=== PATIENT | female | born 1995 | race Two or more races ===

== ENCOUNTER 2017-09-20 20:42 | Emergency (ER) | payer SELFPAY ==
[2017-09-20 20:52] VITALS: BP 117/63
[2017-09-20] MEDS ORDERED: Ibuprofen TAB* 600 MG PO ONE (21:09)
--- NOTE | 2017-09-20 21:30 | UC ---
Mina Reynolds Nilda, scribed for Shamar Gómez MD on 09/20/17 at 2117 . Back Pain HPI - HPI Summary HPI Summary: This patient is a 22 year old F presenting [place] [facility] by friend with a chief complaint of severe right lower back pain that radiates down RLE for the past 4 days. The patient rates the pain 9/10 in severity. Symptoms aggravated by walking and sitting. Symptoms alleviated by lying down and ibuprofen. Patient reports that pain began as lower abd pain which resolved but later progressed into bilateral lower back pain. Now pain is only in right lower back. Patient denies dysuria, fever, chills, diarrhea, bloody stools, vaginal discharge, and issues with bladder/bowel control. - History of Current Complaint Chief Complaint: UCBackPain Stated Complaint: BACK PAIN Time Seen by Provider: 09/20/17 20:55 Hx Obtained From: Patient Hx Last Menstrual Period: END AUGUST 2017 Onset/Duration: Sudden Onset Timing: Constant Severity Currently: Severe Pain Intensity: 9 Pain Scale Used: 0-10 Numeric Back Pain: Is Discrete @ - Right lower back pain, Radiates To - RLE Character: Sharp Aggravating Factor(s): Walking, Other - sitting Alleviating Factor(s): OTC Meds - ibuprofen, Other - lying down Associated Signs And Symptoms: Positive: Other - pain began as lower abd pain which resolved and progressed into bilateral lower back pain. Now pain is only in right lower back. Patient denies dysuria, fever, chills, diarrhea, bloody stools, vaginal discharge, and issues with bladder/bowel control. - Allergies/Home Medications Allergies/Adverse Reactions: Allergies Allergy/AdvReac Type Severity Reaction Status Date / Time No Known Allergies Allergy Verified 09/20/17 20:52 Home Medications: Home Medications Aspirin TAB* [Aspirin 325 MG TAB*] 650 mg PO ONCE PRN 09/20/17 [History Confirmed 09/20/17] PMH/Surg Hx/FS Hx/Imm Hx Respiratory History: Asthma - Surgical History Surgical History: None - Family History Known Family History: Positive: Hypertension, Other - Polymyalgia rheumatica - Social History Alcohol Use: None Substance Use Type: None Smoking Status (MU): Never Smoked Tobacco Review of Systems Constitutional: Other - negative fever, chills Gastrointestinal: Abdominal Pain - lower, resolved, Other - negative diarrhea, bloody stools Genitourinary: Other - negative dysuria, vaginal discharge, issues with bowel and bladder control Musculoskeletal: Other: - right lower back pain that radiates down RLE All Other Systems Reviewed And Are Negative: Yes Physical Exam Triage Information Reviewed: Yes Vital Signs: Initial Vital Signs Temp 99.1 F 09/20/17 20:48 Pulse 87 09/20/17 20:48 Resp 16 09/20/17 20:48 BP 117/63 09/20/17 20:48 Pulse Ox 100 09/20/17 20:48 Vital Signs Reviewed: Yes - Additional Comments General: well-appearing, mild pain distress that becomes moderate with movement Skin: warm, color reflects adequate perfusion, dry Head: normal Eyes: EOMI, SYLVIE ENT: normal Neck: supple, nontender Respiratory: CTA, breath sounds present Cardiovascular: RRR Abdomen: soft, nontender Bowel: present Musculoskeletal: Tender to palpation in lower back to right of spine. Good patellar reflexes, no sensation deficits, strength 5/5 in all ROM for left and right leg. Pt c/o pain in back with right hip flexion, foot plantar flexion, and dorsal flexion. Neurological: normal, sensory/motor intact, A&O x3 Psychological: affect/mood appropriate Back Pain Course/Dx - Course Course Of Treatment: Medications reviewed. NO ABDOMINAL PAIN/TENDERNESS HERE NOW IN CLINIC. TENDER TO RIGHT OF LUMBAR SPINE AND IN THE RT SCIATIC DISTRIBUTION. NO NEURO DEFICIT. F/U PMD; RETURN IF WORSE. - Differential Dx/Diagnosis Provider Diagnoses: LOW BACK PAIN. RIGHT SCIATICA. Discharge - Discharge Plan Condition: Stable Disposition: HOME Patient Education Materials: Sciatica (ED), Acute Low Back Pain (ED) Referrals: Henna Ramos [Primary Care Provider] - Additional Instructions: FOLLOW UP WITH YOUR DOCTOR. GET RECHECKED FOR ANY WORSENING OF YOUR CONDITION; WEAKNESS, NUMBNESS, DIFFICULTY CONTROLLING BOWEL OR BLADDER OR QUESTIONS OR CONCERNS. The documentation as recorded by the Mina bradley Nilda accurately reflects the service I personally performed and the decisions made by me, Shamar Gómez MD.
== END 2017-09-20 21:32 | disposition home or self-care (01) ==
LOC: UCEAST 20:42
DX: M54.41 Lumbago with sciatica, right side (principal); J45.909 Unspecified asthma, uncomplicated; Z79.82 Long term (current) use of aspirin
CPT/HCPCS: 81003; 99202; A9270-GY; G0463

== ENCOUNTER 2019-04-14 10:02 | Emergency (ER) | payer OTHER ==
[2019-04-14 10:13] VITALS: BP 125/67
--- NOTE | 2019-04-14 10:37 | UC ---
Complaint Female HPI - HPI Summary HPI Summary: 24-year-old female presents with onset of dysuria, frequency, and urgency this morning. Patient is currently having her menses. Denies fever, chills, abdominal pain, back or flank pain, nausea, vomiting, dyspareunia, or vaginal discharge. - History Of Current Complaint Chief Complaint: UCGU Stated Complaint: URINARY ISSUE Time Seen by Provider: 04/14/19 10:23 Hx Obtained From: Patient Hx Last Menstrual Period: 04/11/19 Pain Intensity: 6 - Allergies/Home Medications Allergies/Adverse Reactions: Allergies Allergy/AdvReac Type Severity Reaction Status Date / Time No Known Allergies Allergy Verified 04/14/19 10:13 PMH/Surg Hx/FS Hx/Imm Hx Previously Healthy: Yes Respiratory History: Asthma - Surgical History Surgical History: None - Family History Known Family History: Positive: Hypertension, Other - Polymyalgia rheumatica - Social History Occupation: Student Lives: With Family Alcohol Use: None Substance Use Type: None Smoking Status (MU): Never Smoked Tobacco Review of Systems All Other Systems Reviewed And Are Negative: Yes Constitutional: Negative: Fever, Chills Respiratory: Positive: Negative Cardiovascular: Positive: Negative Gastrointestinal: Positive: Negative Genitourinary: Positive: Dysuria, Frequency, Urgency. Negative: Vaginal/Penile Discharge Musculoskeletal: Positive: Negative Neurological: Positive: Negative Is Patient Immunocompromised?: No Physical Exam - Summary Physical Exam Summary: GENERAL APPEARANCE: Well developed, well nourished, alert and cooperative, and appears to be in no acute distress. CARDIAC: Normal S1 and S2. No S3, S4 or murmurs. Rhythm is regular. There is no peripheral edema, cyanosis or pallor. Extremities are warm and well perfused. Capillary refill is less than 2 seconds. Peripheral pulses intact. LUNGS: Clear to auscultation without rales, rhonchi, wheezing or diminished breath sounds. ABDOMEN: Positive bowel sounds. Soft, nondistended, nontender. No guarding or rebound. No masses or hepatosplenomegally. No CVA tenderness. MUSKULOSKELETAL: ROM intact to all extremities. No joint erythema or tenderness. Normal muscular development. Normal gait. SKIN: Skin normal color, texture and turgor with no lesions or eruptions. Triage Information Reviewed: Yes Vital Signs: Initial Vital Signs Temp 98 F 04/14/19 10:10 Pulse 71 04/14/19 10:10 Resp 18 04/14/19 10:10 BP 125/67 04/14/19 10:10 Pulse Ox 100 04/14/19 10:10 Vital Signs Reviewed: Yes Complaint Female Dx - Course Course Of Treatment: 24-year-old female presents with onset of dysuria, frequency, and urgency this morning. Patient is currently having her menses. Denies fever, chills, abdominal pain, back or flank pain, nausea, vomiting, dyspareunia, or vaginal discharge. Afebrile. Vital signs stable. Patient's exam was overall unremarkable. [id number] urinalysis showed 2+ leukocyte esterase and 3+ blood. Urine was negative. Urine culture is pending. Based on the patient's symptoms and UA results will treat empirically for a urinary tract infection with Bactrim DS 1 tablet twice a day 5 days and Pyridium 100 mg 3 times a day 2 days pending urine culture results. She is to follow-up with her primary care provider in 3-5 days if symptoms persist. It is and warning symptoms are reviewed with the patient. Verbalized understanding and agrees with plan of care. - Differential Dx/Diagnosis Differential Diagnosis/HQI/PQRI: Ovarian Cyst, Pelvic Inflammatory Disease, Renal Colic, Sexually Transmitted Disease, Urinary Tract Infection Provider Diagnosis: UTI (urinary tract infection) Discharge - Sign-Out/Discharge Documenting (check all that apply): Patient Departure All imaging exams completed and their final reports reviewed: No Studies - Discharge Plan Condition: Stable Disposition: HOME Prescriptions: Phenazopyridine TAB* [Pyridium 100 mg TAB*] 100 mg PO TID #6 tab Sulfamethox/Trimethoprim DS* [Bactrim DS 800/160 TAB*] 1 tab PO BID #10 tab Patient Education Materials: Urinary Tract Infection in Women (ED) Referrals: Henna Pittman PA [Primary Care Provider] - 3 Days Additional Instructions: Your urine test in the clinic today is suggestive of a urinary tract infection. We will start you on an antibiotic to treat for the infection. We will also send a urine culture today to see what bacteria grow out and make sure the antibiotic you were prescribed is appropriate to treat the infection. It will take 48-72 hours to get these results. We will contact you if there is any change in your treatment plan. Start Bactrim DS 1 tab twice a day for 5 days. Take Pyridium 1 tablet every 8 hours for next 2 days to help with the discomfort. This medication will turn your urine an orange color. Drink plenty of fluids. To help prevent urinary tract infections: 1) Be sure to wipe from front to back. 2) Urinate immediately after any sexual intercourse. 3) Avoid taking bubble baths. Follow up with your primary care provider in 3-5 days if symptoms persist. Seek immediate medical attention in the emergency room if you develop fever greater than 100.5 F, have severe abdominal pain, persistent vomiting, or any worsening of symptoms. - Billing Disposition and Condition Condition: STABLE Disposition: Home
--- NOTE | 2019-04-15 15:06 | UC ---
- Progress Note Progress Note: please notify patient ...NO UTI stop antibiotic recheck if still symtpomatic Course/Dx - Diagnoses Provider Diagnoses: UTI (urinary tract infection) Discharge - Sign-Out/Discharge Documenting (check all that apply): Post-Discharge Follow Up All imaging exams completed and their final reports reviewed: No Studies - Discharge Plan Condition: Stable Disposition: HOME Prescriptions: Phenazopyridine TAB* [Pyridium 100 mg TAB*] 100 mg PO TID #6 tab Sulfamethox/Trimethoprim DS* [Bactrim DS 800/160 TAB*] 1 tab PO BID #10 tab Patient Education Materials: Urinary Tract Infection in Women (ED) Referrals: Henna Pittman PA [Primary Care Provider] - 3 Days Additional Instructions: Your urine test in the clinic today is suggestive of a urinary tract infection. We will start you on an antibiotic to treat for the infection. We will also send a urine culture today to see what bacteria grow out and make sure the antibiotic you were prescribed is appropriate to treat the infection. It will take 48-72 hours to get these results. We will contact you if there is any change in your treatment plan. Start Bactrim DS 1 tab twice a day for 5 days. Take Pyridium 1 tablet every 8 hours for next 2 days to help with the discomfort. This medication will turn your urine an orange color. Drink plenty of fluids. To help prevent urinary tract infections: 1) Be sure to wipe from front to back. 2) Urinate immediately after any sexual intercourse. 3) Avoid taking bubble baths. Follow up with your primary care provider in 3-5 days if symptoms persist. Seek immediate medical attention in the emergency room if you develop fever greater than 100.5 F, have severe abdominal pain, persistent vomiting, or any worsening of symptoms. - Billing Disposition and Condition Condition: STABLE Disposition: Home
== END 2019-04-14 10:45 | disposition home or self-care (01) ==
LOC: UCEAST 10:02
DX: N39.0 Urinary tract infection, site not specified (principal); J45.909 Unspecified asthma, uncomplicated
CPT/HCPCS: 81002; 81025; 87086; 99212; G0463

== ENCOUNTER 2019-11-15 10:01 | Emergency (ER) | payer OTHER ==
[2019-11-15 10:14] VITALS: BP 115/64
--- NOTE | 2019-11-15 12:12 | UC ---
Lower Extremity/Ankle HPI - History of Current Complaint Chief Complaint: UCLowerExtremity Stated Complaint: KNEE PAIN Time Seen by Provider: 11/15/19 11:01 Hx Last Menstrual Period: 10/28 Pain Intensity: 9 - Allergies/Home Medications Allergies/Adverse Reactions: Allergies Allergy/AdvReac Type Severity Reaction Status Date / Time No Known Allergies Allergy Verified 11/15/19 10:14 Home Medications: Home Medications Epinephrine [Epipen] 0.3 mg IM ONCE #1 kit 11/12/12 [Clinic Confirmed 11/15/19] Albuterol HFA INHALER* [Proair Hfa Inhaler*] 2 puff IN Q4H PRN #1 inh 07/17/13 [ Clinic Confirmed 11/15/19] Naproxen [Naproxen 250 mg tab] 250 mg PO BID PRN #30 tablet 11/15/19 [Rx] PMH/Surg Hx/FS Hx/Imm Hx - Surgical History Surgical History: None - Family History Known Family History: Positive: Hypertension, Other - Polymyalgia rheumatica - Social History Alcohol Use: None Substance Use Type: None Smoking Status (MU): Never Smoked Tobacco Physical Exam Vital Signs: Initial Vital Signs Temp 98 F 11/15/19 10:11 Pulse 63 11/15/19 10:11 Resp 20 11/15/19 10:11 BP 115/64 11/15/19 10:11 Pulse Ox 100 11/15/19 10:11 Lower Extremity Course/Dx - Course Course Of Treatment: Possible Meniscal Tear - Ice, rest knee as much as possible - Follow up with orthopedics within 1-2 weeks for evaluation - Go to ER with increased pain, warm, swollen joint, inability to move. Academic Adviser: Earl Knapp C, ([id number]) Messenger Floorperson: LYNETTE ( LYNETTE) Report Date: 11/15/2019 12:00:00 Report Status: Final ====== Start of Report Content Patient Name: LER,PAWLERPAW Medical Record#: [id number] Ordering Physician: Ashley WOODARD Acct.#: [id number] : 09/1994 Age: 24 Sex: F Location: [facility] Exam Date: 11/15/19 1124 ADM Status: REG ER Order Information: KNEE LEFT 4+ VWS Accession Number: [id number] CPT: 79960 Indication: Several months LEFT knee pain. Weak feeling at the patella. COMPARISON: No relevant prior exams available on the [facility] PACS. Technique: LEFT knee: AP, tunnel, lateral, sunrise views obtained. Report: #. Normal articular alignment. #. Negative for fracture or osteochondral lesion. # . Negative for joint effusion. #. Preserved joint spaces without appreciable arthropathic change. #. Unremarkable soft tissue contours. <Electronically signed by Earl Knapp MD in OV> 11/15/19 1157 Dictated By: Earl Knapp MD Dictated Date/ Time: 11/15/19 1155 Transcribed Date/Time: 11/15/19 1155 Copy to: CC:Kyara Pedraza MD ; Henna BARROW; Ashlye WOODARD Imaging - [facility] Imaging - [facility] Urgent [facility] [address] [address] ph ([phone]) ph ([phone]) ph ([phone]) End of Report Content - Differential Dx/Diagnosis Differential Diagnosis/HQI/PQRI: Bursitis, Sprain, Strain, Tendonitis Provider Diagnosis: Acute meniscal tear of knee Discharge ED - Sign-Out/Discharge Documenting (check all that apply): Patient Departure All imaging exams completed and their final reports reviewed: No Studies - Discharge Plan Condition: Stable Disposition: HOME Prescriptions: Naproxen [Naproxen 250 mg tab] 250 mg PO BID PRN #30 tablet PRN Reason: Pain - Mild Patient Education Materials: Knee Pain (ED) Forms: *Work Release Referrals: Babak Pride MD [Medical Doctor] - Henna Pittman PA [Primary Care Provider] - Additional Instructions: Possible Meniscal Tear - Ice, rest knee as much as possible - Follow up with orthopedics within 1-2 weeks for evaluation - Go to ER with increased pain, warm, swollen joint, inability to move. Academic Adviser: Earl Knapp C ([id number]) Messenger Floorperson: LYNETTE ( LYNETTE) Report Date: 11/15/2019 12:00:00 Report Status: Final ====== Start of Report Content Patient Name: MILTON KIM Medical Record#: [id number] Ordering Physician: Ashley WOODARD Acct.#: [id number] : 09/1994 Age: 24 Sex: F Location: [facility] Exam Date: 11/15/19 1124 ADM Status: REG ER Order Information: KNEE LEFT 4+ VWS Accession Number: [id number] CPT: 47740 Indication: Several months LEFT knee pain. Weak feeling at the patella. COMPARISON: No relevant prior exams available on the [facility] PACS. Technique: LEFT knee: AP, tunnel, lateral, sunrise views obtained. Report: #. Normal articular alignment. #. Negative for fracture or osteochondral lesion. # . Negative for joint effusion. #. Preserved joint spaces without appreciable arthropathic change. #. Unremarkable soft tissue contours. <Electronically signed by Earl Knapp MD in OV> 11/15/191156 Dictated By: Earl Knapp MD Dictated Date/ Time: 11/15/191154 Transcribed Date/Time: 11/15/191154 Copy to: CC:Kyara Pedraza MD ; Henna BARROWC; Ashley Zepeda [place] Imaging - [facility] [place] [facility] - [place] [facility]gent [facility] Imaging - [facility] [address] [address] ph ([phone]) ph ([phone]) ph ([phone]) End of Report Content - Billing Disposition and Condition Condition: STABLE Disposition: Home
== END 2019-11-15 12:16 | disposition home or self-care (01) ==
LOC: UCEAST 10:01
DX: S83.207A Unspecified tear of unspecified meniscus, current injury, left knee, initial encounter (principal); X58.XXXA Exposure to other specified factors, initial encounter; Y92.9 Unspecified place or not applicable
CPT/HCPCS: 99212; G0463

== ENCOUNTER 2024-02-08 18:03 | Inpatient (IN) ==
[2024-02-08] MEDS ORDERED: Nalbuphine 10 MG/ML 1 ML VIAL IV PRN (20:16)
[2024-02-08 20:34] LABS: Urine Benzodiazepine Screen None Detected (None Detect); Urine Cannabinoids Screen None Detected (None Detect); Urine Opiates Screen None Detected (None Detect)
[2024-02-08] MEDS: Dinoprostone 10 MG VAG.SUPP VAGINAL ONE (21:17)
[2024-02-08 21:55] LABS: ABS Basophils 0.1 10^3/uL (0.0-0.1); ABS Eosinophils 0.1 10^3/uL (0.0-0.5); ABS Lymphocytes 2.2 10^3/uL (1.0-4.8); ABS Monocytes 0.8 10^3/uL (0.0-0.9); ABS Neutrophils 6.3 10^3/uL (1.5-7.6); Eosinophil % 0.8 %; Hematocrit 42.7 % (35-45); Hemoglobin 14.4 g/dL (11.5-14.3); Lymphocyte % 23.4 %; Mean Corpuscular Hemoglobin 30.4 pg (27-33); Mean Corpuscular Hgb Conc 33.8 g/dL (31-36); Mean Corpuscular Volume 90.1 fL (80-97); Mean Platelet Volume 11.9 fL (7.5-11.2); Platelet Count 125 10^3/uL (150-450); Red Blood Count 4.74 10^6/uL (3.63-4.92); Red Cell Distribution Width 14.8 % (12-17); White Blood Count 9.4 10^3/uL (3.8-11.8)
[2024-02-08] MEDS: Lactated Ringers 1000 ml BAG 1,000 ML IV ONE (22:54)
[2024-02-08 22:55] LABS: Hepatitis B Surface Antigen Nonreactive (Nonreactive)
[2024-02-08] MEDS: NYSTATIN TOPICAL SCH (23:55)
[2024-02-08] MEDS: TRIAMCINOLON TOPICAL SCH (23:55)
[2024-02-09] MEDS: Lactated Ringers 1000 ml BAG 1,000 ML IV SCH (01:03)
[2024-02-09] MEDS: Terbutaline INJ 1 MG/ML 1 ml VIAL SUBCUT ONE (01:22)
[2024-02-09] MEDS: Prochlorperazine 5 mg/ml 2 ml VIAL (10 mg) IV PRN (02:21)
[2024-02-09] MEDS: Lidocaine 1% VIAL 10 MG/ML 30 ML VIAL INJ PRN (07:48)
[2024-02-09] MEDS: Oxytocin in LR 20,000 MILLI.UNIT/1,000 ML BAG IV ONE (07:49)
[2024-02-09] MEDS ORDERED: Dibucaine 1% OINT 28.35 GM TUBE PR PRN (08:04)
[2024-02-09] MEDS ORDERED: Glycerin ADULT 2.4 gm SUPP PR PRN (08:04)
[2024-02-09] MEDS ORDERED: Lactated Ringers 1000 ml BAG 1,000 ML IV SCH (09:00)
[2024-02-09] MEDS: Witch Hazel PAD JAR TOPICAL PRN (09:33)
[2024-02-10] MEDS: Triamcinolone 0.025% OINT 15 GM TUBE TOPICAL SCH (00:46)
[2024-02-10 08:22] LABS: Hemoglobin 11.9 g/dL (11.5-14.3); Mean Corpuscular Hemoglobin 30.2 pg (27-33); Mean Corpuscular Hgb Conc 33.2 g/dL (31-36); Red Blood Count 3.96 10^6/uL (3.63-4.92); Red Cell Distribution Width 14.9 % (12-17); White Blood Count 11.5 10^3/uL (3.8-11.8)
[2024-02-10 09:20] LABS: ABS Eosinophils 0.1 10^3/uL (0.0-0.5); ABS Lymphocytes 2.1 10^3/uL (1.0-4.8); ABS Monocytes 0.7 10^3/uL (0.0-0.9); ABS Neutrophils 8.5 10^3/uL (1.5-7.6); Eosinophil % 0.8 %; Lymphocyte % 18.6 %; Mean Platelet Volume 11.9 fL (7.5-11.2); Platelet Count 92 10^3/uL (150-450)
[2024-02-11] MEDS: Oxytocin in LR 20,000 MILLI.UNIT/1,000 ML BAG IV SCH (07:22)
[2024-02-11] MEDS: Lidocaine 2% JELLY 6 ML Topical TOPICAL ONE (07:22)
[2024-02-11] MEDS: Buffered Lidocaine 1% SYRIN 1 ml INTRADERM ONE (07:22)
[2024-02-11] MEDS: Terbutaline INJ 1 MG/ML 1 ml VIAL ONE (07:26)
[2024-02-11 08:03] VITALS: BP 115/65
== END 2024-02-11 12:20 | disposition home or self-care (01) | DRG 560 ==
LOC: MCHOBOUT 18:03 → MCHOB 18:50
PROVIDERS: ADMIT Advanced Practice Midwife; ATTEND Advanced Practice Midwife